=== PATIENT | male | born 1995 | race Hispanic/Latino ===

== ENCOUNTER 2023-03-04 08:10 | Emergency (ER) | payer SELFPAY ==
[2023-03-04 08:12] VITALS: BP 141/76; PULSE 77; RESP 16; TEMP 36.6; O2SAT 100
--- NOTE | 2023-03-04 08:36 | ED.WOUNDLAC ---
HPI - Wound/Laceration General Chief Complaint: Wound/Laceration Stated Complaint: fall, facial injury Time Seen by Provider: 03/04/23 08:21 History of Present Illness HPI narrative: Patient fell at work and hit his face, causing a large cut to his nose. No LOC, n/v, tdap UTD. Related Data Allergies Allergy/AdvReac Type Severity Reaction Status Date / Time No Known Allergies Allergy Verified 03/04/23 14:28 Review of Systems Review of Systems: All systems reviewed & are unremarkable except as noted in HPI and below Exam Narrative: EXAMINATION OF ORGAN SYSTEMS/BODY AREAS: Constitutional: Vital signs per nursing GENERAL:[No acute distress, non-toxic appearing.] HEAD: Normal with no signs of head trauma. EYES: EOMI, conjunctiva normal ENT: Large 3cm lac through/through R nare LUNGS: Nonlabored breathing. HEART: [Regular rate and rhythm] ABD: Nondistended EXT: Normal range of motion SKIN: Nasal lac per above; also small superficial lac L nostril NEURO: [Alert and oriented x 3. No gross focal sensory or strength deficits.] PSYCH: Normal affect Course Vital Signs Vital signs: Vital Signs Temperature 98 F 03/04/23 08:12 Pulse Rate 77 03/04/23 08:12 Respiratory Rate 16 03/04/23 08:12 Blood Pressure 141/76 H 03/04/23 08:12 Pulse Oximetry 100 03/04/23 08:12 Oxygen Delivery Room Air 03/04/23 08:12 Temperature 98 F 03/04/23 08:12 Pulse Rate 70 03/04/23 18:12 Respiratory Rate 16 03/04/23 18:12 Blood Pressure 120/80 03/04/23 18:12 Pulse Oximetry 100 03/04/23 18:12 Oxygen Delivery Room Air 03/04/23 08:12 MDM - Wound/Laceration MDM Narrative Medical decision making narrative: 27-year-old male presenting after fall with laceration to his right nare, VSS, on exam has large thru/thru lac to nose. Given the complexity of the laceration my concern for infection and scarring, I did consult ENT. He recommended starting clindamycin at this time and he will repair the nose. Laceration repaired by ENT clindamycin given. Strict return precautions and discharge instructions provided in Nigerien with interpretation in person and on paper. Patient had no more questions, stable for discharge at this time with ENT followup. Discharge Plan Discharge Clinical Impression: Laceration of nose, complex Patient Disposition: Home, Self-Care Condition: Improved Instructions: Antibiotic Form, Laceration (ED) Additional Instructions: Take your antibiotics. No forceful nose blowing for a couple weeks do not get it wet for 3 days do not soak it underneath water for a week. If the stitches remain after 2 weeks, you can cut and pick them out. Try to avoid hitting the nose. Patient Language: Nigerien Prescriptions: New mupirocin 2 % ointment 1 applic topical QID 14 Days Qty: 22 0RF clindamycin HCl 150 mg capsule 450 mg PO Q8H 10 Days Qty: 90 0RF Follow-up/Referrals: Brent Clarke MD [Physician] - 2 Days PHYSICIAN,PRODUCT SAFETY ADMINISTRATOR [Primary Care Provider] -
[2023-03-04] MEDS: CLINDAMYCIN HCL 150 MG CAP 450 MG PO ×2 (08:42→18:08)
[2023-03-04 11:20] VITALS: BP 120/90; PULSE 70; RESP 16; O2SAT 100
--- NOTE | 2023-03-04 14:24 | PC.NURSE ---
Pt to room 16 from room 4, care assumed at this time
--- NOTE | 2023-03-04 17:39 | WPDPROCEDUR ---
Procedures Other Procedures Procedure 1: Other Procedure: Lack closure all the consents obtained to 4 cm complicated nasal laceration will say 3 cm complex. Irrigated anesthetized with 1% lidocaine with star 2% 1 100,000 parts epinephrine. About 1 cc total. Deep layers closed with 4 Vicryl interrupted skin closed with 5 0 fast. Could not get very many intranasal sutures placed. Mupirocin placed afterwards patient tolerated the procedure well
--- NOTE | 2023-03-04 17:40 | P.CONS_ITS ---
Assessment and Plan Assessment and plan (1) Nasal laceration: Code(s): S01.21XA - Laceration without foreign body of nose, initial encounter Status: Acute Assessment and Plan: 10 days a g positive MRSA coverage doxycycline or clinda at a minimum the patient has any persistent infectious symptoms and extend that to 14-20 days. Two weeks of essentially continues mupirocin use the outside and intranasally should be covered. Mupirocin is cost prohibitive can use triple antibiotic ointment. No forceful nose blowing for a couple weeks do not get it wet for 3 days do not soak it underneath water for a week. The stitches are absorbable we will follow on their own. If the stitches remain after 2 weeks the cut and pick them out. They can call the office if they would like a follow-up appointment I recommend follow-up in 1-2 weeks. Try to avoid hitting the nose really any forceful activities that could traumatize it. HPI Data of Consult Date/Time: 03/04/23 17:40 Primary Care Provider: SYNTHETIC RESIN OPERATOR PHYSICIAN Consult Narrative Narrative: Fco Robison is a 27 year old male injured by machinery at work. Complex nasal laceration Meds Home Medications and Allergies Allergies Allergy/AdvReac Type Severity Reaction Status Date / Time No Known Allergies Allergy Verified 03/04/23 14:28 Vital Signs Vital Signs - 24 hr 03/04/23 08:12 03/04/23 11:20 Temperature 36.6 C Pulse Rate 77 70 Respiratory Rate 16 16 Blood Pressure 141/76 H 120/90 Pulse Oximetry 100 100 Oxygen Delivery Room Air Exam Narrative: Nasal laceration through and through the tip repaired at bedside see procedure note details
[2023-03-04 18:12] VITALS: BP 120/80; PULSE 70; RESP 16; O2SAT 100
== END 2023-03-04 18:15 | disposition home or self-care (01) ==
PROVIDERS: Emergency Provider Emergency Medicine
DX: S01.21XA Laceration without foreign body of nose, initial encounter (principal); W19.XXXA Unspecified fall, initial encounter
CPT/HCPCS: 12052; 99283; A9270